=== PATIENT | male | born 1970 | race American Indian/Alaskan Native ===

== ENCOUNTER 2022-05-05 09:48 | Emergency (ER) | payer SELFPAY ==
[2022-05-05 11:45] LABS: Basophils # (Auto) 0.2 K/mm3 (0.0-0.1); Basophils % (Auto) 2.3 % (0.0-1.8); Eosinophils # (Auto) 0.2 K/mm3 (0.0-0.4); Eosinophils % (Auto) 3.2 % (0.0-4.3); Hematocrit 41.6 % (35.5-45.6); Hemoglobin 13.7 gm/dl (11.8-15.2); Lymphocytes # (Auto) 2.2 K/mm3 (1.2-5.4); Lymphocytes % (Auto) 29.3 % (13.4-35.0); Mean Corpuscular HGB Conc 33 % (32-34); Mean Corpuscular Volume 99 fl (84-94); Monocytes # (Auto) 0.6 K/mm3 (0.0-0.8); Monocytes % (Auto) 7.9 % (0.0-7.3); Platelet Count 364 K/mm3 (140-440); Red Blood Count 4.19 M/mm3 (3.65-5.03); Red Cell Distribution Width 13.9 % (13.2-15.2)
[2022-05-05 12:04] LABS: Partial Thromboplastin Time 29.3 Sec. (24.2-36.6)
[2022-05-05 12:12] LABS: Alanine Aminotransferase 35 units/L (7-56); Albumin 4.2 g/dL (3.9-5); BUN/Creatinine Ratio 16; Blood Urea Nitrogen 14 mg/dL (9-20); Calcium 9.3 mg/dL (8.4-10.2); Hemolysis Index 27
--- NOTE | 2022-05-05 15:09 | XRay Report ---
CHEST 2 VIEWS INDICATION / CLINICAL INFORMATION: SOB. COMPARISON: None available. FINDINGS: SUPPORT DEVICES: Expected position of the left pectoral transvenous AICD. HEART / MEDIASTINUM: Mild cardiomegaly and central pulmonary venous congestion. LUNGS / PLEURA: No significant pulmonary or pleural abnormality. No pneumothorax. ADDITIONAL FINDINGS: None IMPRESSION: 1. Features of mild chronic CHF without superimposed acute chest process. Signer Name: Carlos Meyers MD Signed: 05/05/2022 3:04 PM Workstation Name: [id number]
--- NOTE | 2022-05-05 18:41 | Emergency Department Report ---
ED General Adult HPI - General Chief complaint: Dyspnea/Respdistress Stated complaint: SOB Time Seen by Provider: 05/05/22 17:24 Source: patient Mode of arrival: Ambulatory Limitations: No Limitations - History of Present Illness Initial comments: 51-year-old male with history of hypertension, COPD, CHF and asthma who just moved from [place] to [place] to be living with his sister and ran out of antihypertensive medication and wanted a refill. Patient denies any symptoms at this point. No other modifying or associated factors reported. Severity scale (0 -10): 2 - Related Data Home Medications Medication Instructions Recorded Confirmed Last Taken Potassium Chloride [K-Dur] 10 meq PO QDAY 05/05/22 05/05/22 Unknown Previous Rx's Medication Instructions Recorded Last Taken Type Dapagliflozin Propanediol [Farxiga] 10 mg PO DAILY 30 Days #30 tab NS 05/05/22 Unknown Rx Losartan [Cozaar] 100 mg PO QDAY 30 Days #30 tab NS 05/05/22 Unknown Rx Spironolactone [Aldactone] 25 mg PO QDAY 30 Days #30 tab NS 05/05/22 Unknown Rx Torsemide [Demadex] 20 mg PO BID 30 Days #30 tab NS 05/05/22 Unknown Rx Allergies Allergy/AdvReac Type Severity Reaction Status Date / Time No Known Allergies Allergy Verified 05/05/22 10:18 ED Review of Systems ROS: Stated complaint: SOB Other details as noted in HPI Comment: All other systems reviewed and negative Other: Medication refills antihypertensives specifically ED Past Medical Hx - Past Medical History Hx Hypertension: Yes Hx Congestive Heart Failure: Yes Hx Asthma: Yes Hx COPD: Yes Additional medical history: cardiomyopathy - Surgical History Additional Surgical History: ICD - Social History Smoking Status: Current Every Day Smoker - Medications Home Medications: Home Medications Medication Instructions Recorded Confirmed Last Taken Type Dapagliflozin Propanediol [Farxiga] 10 mg PO DAILY 30 Days #30 tab NS 05/05/22 Unknown Rx Losartan [Cozaar] 100 mg PO QDAY 30 Days #30 tab NS 05/05/22 Unknown Rx Potassium Chloride [K-Dur] 10 meq PO QDAY 05/05/22 05/05/22 Unknown History Spironolactone [Aldactone] 25 mg PO QDAY 30 Days #30 tab NS 05/05/22 Unknown Rx Torsemide [Demadex] 20 mg PO BID 30 Days #30 tab NS 05/05/22 Unknown Rx ED Physical Exam - General Limitations: No Limitations General appearance: alert, in no apparent distress - Head Head exam: Present: atraumatic, normal inspection - Eye Eye exam: Present: normal appearance, scleral icterus Pupils: Present: normal accommodation - ENT ENT exam: Present: normal exam, normal orophraynx, mucous membranes moist - Neck Neck exam: Present: normal inspection, full ROM. Absent: tenderness - Respiratory Respiratory exam: Present: normal lung sounds bilaterally. Absent: respiratory distress, wheezes, accessory muscle use - Cardiovascular Cardiovascular Exam: Present: regular rate, normal rhythm, normal heart sounds - GI/Abdominal GI/Abdominal exam: Present: soft, normal bowel sounds. Absent: distended, te nderness - Extremities Exam Extremities exam: Present: normal inspection, normal capillary refill. Absent: tenderness - Back Exam Back exam: Absent: tenderness - Neurological Exam Neurological exam: Present: alert, oriented X3 - Psychiatric Psychiatric exam: Present: normal affect, normal mood - Skin Skin exam: Present: warm, normal color ED Course Vital Signs 05/05/22 05/05/22 05/05/22 10:11 13:59 14:03 Temperature 98.9 F 97.7 F 97.7 F Pulse Rate 105 H 95 H 92 H Respiratory 14 20 20 Rate Blood Pressure 157/121 Blood Pressure 164/109 164/102 [Right] O2 Sat by Pulse 96 95 95 Oximetry 05/05/22 05/05/22 05/05/22 17:13 20:49 21:00 Temperature Pulse Rate 92 H 111 H Respiratory 20 18 Rate Blood Pressure Blood Pressure 158/111 161/104 [Right] O2 Sat by Pulse 97 97 99 Oximetry ED Medical Decision Making - Lab Data Result diagrams: 05/05/22 10:51 05/05/22 10:51 - EKG Data -: EKG Interpreted by Pr Rate: normal - EKG Data 05/05/22 22:26 Atrial sensed ventricular paced at a rate of [address] elevation or depression noted in this abnormal ECG - Medical Decision Making here with refills of his antihypertensive medications-- I reviewed his medications and noted potassium so will go ahead order routine labs for any infectious process or electrolytes abnormality -- Lab reviewed to be within normal limits--we will go ahead and filled this patient's medication for 30 days to give him a chance to follow-up with his primary doctor Critical care attestation.: If time is entered above; I have spent that time in minutes in the direct care of this critically ill patient, excluding procedure time. ED Disposition Clinical Impression: Hypertensive urgency Hypertension Qualifiers: Hypertension type: unspecified Qualified Code(s): I10 - Essential (primary) hypertension Disposition: HOME / SELF CARE / HOMELESS Is pt being admited?: No Does the pt Need Aspirin: No Condition: Stable Instructions: Hypertension (ED), Hypertension, Adult, [id number], Managing Your Hypertension Additional Instructions: Follow the above printed instruction to continue to help your symptoms It is very important that you call and schedule follow-up with your primary doctor in the next 1 to 2 weeks for progress Call or return to emergency if your symptoms worsen Prescriptions: Spironolactone [Aldactone] 25 mg PO QDAY 30 Days #30 tab NS Losartan [Cozaar] 100 mg PO QDAY 30 Days #30 tab NS Torsemide [Demadex] 20 mg PO BID 30 Days #30 tab NS Dapagliflozin Propanediol [Farxiga] 10 mg PO DAILY 30 Days #30 tab NS Referrals: PRIMARY CARE, [Primary Care Provider] - 3-5 Days Time of Disposition: 22:30
[2022-05-05] MEDS ORDERED: ASPIRIN 81 MG TAB CHEW ONE (20:54)
[2022-05-05] MEDS ORDERED: ASPIRIN 81 MG TAB CHEW PO ONE (20:57)
[2022-05-05] MEDS ORDERED: IPRATROPIUM/ALBUTEROL SULFATE 3 ML AMPUL.NEB IH ONE (22:45)
[2022-05-06 00:18] VITALS: BP 155/90
--- NOTE | 2022-05-06 11:08 | Electrocardiograph Report ---
[facility] Test Date: 2022-05-05 Test Time: 10:20:41 Pat Name: REGINA ALMONTE Department: Room: Gender: M Bank Worker: BRY : 1970 Requested By: ED DOC Order Number: [id number] Reading MD: Estrada Prado Measurements Intervals [place] Rate: 106 P: 64 NC: 159 QRS: 242 QRSD: 143 T: 46 QT: 390 QTc: 520 Interpretive Statements Atrial-sensed ventricular-paced rhythm No previous ECG available for comparison Electronically Signed On 05-06-2022 11:08:40 EDT by Estrada Prado
--- NOTE | 2022-05-08 08:46 | Electrocardiograph Report ---
[facility] Test Date: 2022-05-05 Test Time: 13:58:46 Pat Name: REGINA ALMONTE Department: Room: Gender: M [employer] Bookbinder: NURSE : 1970 Requested By: BECKY PUGH Order Number: [id number] Reading MD: Thomas Sims Measurements Intervals [place] Rate: 95 P: 77 CA: 160 QRS: -86 QRSD: 137 T: 59 QT: 402 QTc: 506 Interpretive Statements Atrial-sensed ventricular-paced rhythm Biventricular paced rhythm Compared to ECG 05/05/2022 10:20:41 No significant changes Electronically Signed On 05-08-2022 8:45:48 EDT by Thomas Sims
== END 2022-05-06 00:17 | disposition home or self-care (01) ==
LOC: ED 09:48
DX: I16.0 Hypertensive urgency (principal); I10 Essential (primary) hypertension
CPT/HCPCS: 36415; 71046; 80053; 84484; 85025; 85610; 85730; 93005; 94640; 94644; 99284